=== PATIENT | male | born 1955 | race Caucasian/White ===

== ENCOUNTER 2017-02-15 04:12 | Observation (INO) | payer OTHER ==
[~2017-02-15] VITALS: Ht 185.4 cm; Wt 72.6 kg
[~2017-02-15 04:12] MED LIST: AMITRIPTYLINE H50 MG PO; ASPIR 8181 MG PO; FLEXERIL 10 MG10 MG PO; LIPITOR TAB 2020 MG PO; LISINOPRIL10 MG PO; NEURONTIN 300300 MG PO; NORCO 7.5-3251 EACH PO; SEROQUEL100 MG PO; ZANTAC300 MG PO
[2017-02-15 04:50] LABS: HEMOGLOBIN 11.9 gm/dl (14.0-17.5); RED BLOOD COUNT 4.01 M/UL (4.20-5.50); WHITE BLOOD COUNT 9.4 K/UL (4.5-11.0)
[2017-02-15 05:12] LABS: BUN/CREATININE RATIO 14 (0-10)
[2017-02-16] MEDS ORDERED: METOPROLOL TART25 MG PO (11:43)
== END 2017-02-16 11:04 | disposition home or self-care (01) ==
LOC: ER1 04:12 → M/S 06:19 → ZEROF 06:19 → M/S 07:41
PROVIDERS: Family Medicine; ADMIT Internal Medicine
DX: R07.9 Chest pain, unspecified (principal); I25.10 Atherosclerotic heart disease of native coronary artery without angina pectoris; I10 Essential (primary) hypertension; E78.5 Hyperlipidemia, unspecified; D64.9 Anemia, unspecified; M54.5 Low back pain; G89.29 Other chronic pain; F17.210 Nicotine dependence, cigarettes, uncomplicated; Z79.82 Long term (current) use of aspirin; Z79.899 Other long term (current) drug therapy
CPT/HCPCS: 36415; 36600; 71010; 80053; 80061; 82550; 82553; 82803; 83036; 83540; 83550; 83874; 84484; 85025; 93005; 96374; 99285; C1769; C1894; G0378; J1644; J1650; J2250; J3010; J7030; Q9963